=== PATIENT | female | born 1980 | race Caucasian/White ===

== ENCOUNTER 2017-12-20 03:17 | Emergency (ER) | payer BC, OTHER, SELFPAY ==
[2017-12-20 03:22] VITALS: BP 119/77; PULSE 74; RESP 16; TEMP 36.8; O2SAT 97; BMI 30.7
--- NOTE | 2017-12-20 04:08 | ED.VIS.GEN ---
History of Present Illness Chief Complaint: Abd Pain Narrative: 2 separate issues tonight; the first is right lower leg medial discomfort that started yesterday around 24 hours ago, spontaneously without injury, it is now more anterior. She states about 4 months ago she had procedures on the veins in her right lower leg that included excision of 1 of the saphenous veins. She states this discomfort started as feeling just like her postoperative pain. Now that discomfort is gone, and she has a weird anterior acosta pain that she states it feels very sensitive to even touch the skin. She has noticed no skin color changes. She has had no edema that she knows of, but states she is on her feet all the time and is not sure about the presence or absence of swelling. She denies any chest discomfort or shortness of breath, no history of DVT or PE, she had the procedures because of varicose veins that were uncomfortable. She states 3 or 4 hours prior to arrival, she started having left upper quadrant pain that is mild and achy, but has occasional severe sharp stabbing component. No radiation into the back or elsewhere. No migration. No urinary symptoms, no changes in bowel movements, the last one was normal and about an hour or 2 prior to the onset of pain. No blood or melena. She states she was diagnosed as possibly having a peptic ulcer when she was 14 years old, she was on medical treatment for it, and never had any issues like that again, and states over the last several days to week, although she has been severely stressed she has had no abdominal pain with or without eating until a few hours ago. She is nauseated but has had no vomiting tonight. She states she is extremely stressed when at her job, and she recently quit smoking. When going to her job, she has occasional diarrhea and headaches. Her in the weekend when she is not at work, she has none of those symptoms. She states that 3 days ago, she put in her 2 weeks notice and is quitting her job, and has felt better physically with regards of those symptoms ever since. - Past Medical History (1) Hypothyroidism Status: Chronic (2) Varicose veins of both lower extremities Status: Chronic Past Medical History - Allergies and Home Meds Allergies/Adverse Reactions: Allergies adhesive Allergy (Verified 12/20/17 03:21) Other jean her skin latex Allergy (Verified 12/20/17 03:20) Other blisters Surgical History: - - bilat tubal ligation Smoking Status: Former smoker Drugs: None Review of Systems All systems negative except as indicated General: Denies: Chills, Fever Cardiovascular: Denies: Chest pain, Palpitations, Heart racing Respiratory: Denies: Dyspnea, Cough, Orthopnea, Paroxysmal nocturnal dyspnea Gastrointestinal: Reports: Abdominal pain, Nausea, Diarrhea - not now. Denies: Vomiting, Melena, Hematochezia Genitourinary: Denies: Dysuria, Hematuria, Frequency Skin: Denies: Rash, Abscess, Wounds Neurological: Reports: Headache - not now. Denies: Weakness, Parasthesia, Numbness Endocrine: Denies: Polyuria, Polydipsia Physical Exam Vital Signs/Narrative: Vital Signs Temp Pulse Resp BP Pulse Ox 12/20/17 03:22 98.2 F 74 16 119/77 97 Inital Vital Signs reviewed: Yes General: Well nourished, Well developed Head: Normocephalic, Atraumatic Eyes: Perrl, EOMI ENT: Moist mucous membranes, No rhinorrhea Neck: Supple, Nontender Cardiovascular: Regular rate, Regular rhythm, No murmurs Respiratory: No distress, CTA bilaterally, Chest nontender Abdomen: Soft, Nondistended, Normal bowel sounds, Tender - Left upper quadrant only.. Negative for: Guarding, Rebound tenderness, Mass, Pulsatile mass, Ventral hernia Back: Nontender, Normal Inspection. Negative for: CVA tenderness Extremities: No edema, Tenderness - very tender superficial palp over right acosta, but stops the tibial tuberosity, and just before ankle. No skin abnormalities or erythema or lesions in this area. No tenderness in any of the muscular compartments including anterior lower leg compartment. Full range of motion of knee and ankle without any difficulty or limitations. 2+/4 dorsalis pedis pulse. No calf tenderness. No palpable cords throughout the leg and thigh. Skin: Normal color, No rash Neurological: Alert, Oriented x3, Cranial nerves II-XII grossly intact, Normal Strength, Normal Sensation Psychological: Normal affect Diagnostic/Tx/Re-eval Laboratory Tests 12/20/17 12/20/17 12/20/17 03:32 03:32 04:20 WBC 6.9 RBC 4.48 Hgb 14.0 Hct 41.5 MCV 92.6 MCH 31.3 MCHC 33.7 RDW 12.7 RDW Differential 41.8 Plt Count 293 MPV 9.5 Immature Gran % (Auto) 0.600 Neut % (Auto) 54.8 Lymph % (Auto) 32.5 [place]orte % (Auto) 7.8 Eos % (Auto) 3.6 Baso % (Auto) 0.7 Absolute Neuts (auto) 3.8 Absolute Lymphs (auto) 2.25 Total Counted Not Reportable D-Dimer Quant (PE/DVT) 0.34 Sodium 143 Potassium 3.9 Chloride 107 Carbon Dioxide 25.0 Anion Gap 11 BUN 11 Creatinine 0.64 Estim Creat Clear Calc 110.48 Est GFR (MDRD) Af Amer 132 Est GFR (MDRD) Non-Af 109 BUN/Creatinine Ratio 17.2 Glucose 87 Calcium 8.8 - Medical Decision Making Patient noticed improvement after GI cocktail. Still some mild residual discomfort, but no severe sharp stabbing pains anymore. Her labs are very reassuring with no signs of a leukocytosis, and her d-dimer is negative. Therefore, she does not need further workup to rule out acute DVT or PE, and I do not think she needs a CT of the abdomen/pelvis at this time. Her pain is intestinal some sort, possibly related to the stomach. I at least recommend a 2 week course of an H2 justice or PPI and follow-up from there. She is comfortable with that plan. Of note, she states that with time and observation her right lower extremity is improving with regards to its discomfort. ED Disposition - Plan for ED Patient: Disposition: Home or Assisted Living Chief Complaint: Abd Pain Diagnosis: Left upper quadrant abdominal pain of unknown etiology, Right leg pain Instructions: ED Abdominal Pain Unkn Cause Prescriptions: Ondansetron [Zofran Odt] 8 mg PO Q8H PRN PRN #15 tab PRN Reason: Nausea/Vomiting [facility] - 1 Week if not improving Additional Instructions: Take daily Zantac, Pepcid, Tagamet, or Prilosec OTC for 2 weeks.
[2017-12-20] MEDS: Ondansetron 4 MG/2 ML Vial IV (04:15)
[2017-12-20] MEDS: Mag Hydrox/Al Hydrox/Simeth 30 ML UDC PO (04:15)
[2017-12-20 04:18] LABS: Absolute Lymphocyte Count 2.25 X10^3/ul (0.83-4.51); Absolute Neutrophil Count 3.8 X10^3/uL (2.0-7.7); Basophil# 0.05 X10^3/uL; Basophil% 0.7 % (0-1); Eosinophil# 0.25 X10^3/uL; Eosinophils% 3.6 % (0-5); Hematocrit 41.5 % (37-47); Lymphocyte # 2.25 X10^3/ul (4.0); Lymphocyte % 32.5 % (19-41); Mean Corp Hgb Conc 33.7 g/gl (32-36); Mean Corpuscular Hgb 31.3 pg (27.0-32.0); Mean Corpuscular Volume 92.6 fL (81-99); Mean Platelet Vol. 9.5 fl (6.2-12.0); Monocyte# 0.54 X10^3/uL; Monocyte% 7.8 % (0-10); Neutrophil % 54.8 % (47-70); Platelet Count 293 K/mm3 (150-450); RBC Distribution Width CV 12.7 % (11.6-14.6); RBC Distribution Width SD 41.8 fl (35.1-43.9); Red Blood Count 4.48 M/mm3 (4.2-5.4); White Blood Count 6.9 K/mm3 (4.4-11.0)
[2017-12-20 04:20] LABS: POSITIVE COUNT NO; POSITIVE DIFFERENTIAL NO; POSITIVE MORPHOLOGY NO
[2017-12-20 04:27] LABS: Anion Gap 11 (5-15); BUN 11 mg/dL (7-18); BUN/Creat Ratio 17.2 RATIO (10-20); Calcium,Total 8.8 mg/dL (8.5-10.1); Chloride 107 mmol/L (98-107); Creatinine, Serum 0.64 mg/dL (0.55-1.02); EST Glomerular Filtration Rate 109 mL/min (>60); Est Glom Filt Rate - Afr Amer 132 mL/min (>60); Estimated Creatinine Clearance 110.48 ml/min; Glucose 87 mg/dL (74-106); Potassium 3.9 mmol/L (3.5-5.1); Sodium Level 143 mmol/L (136-145)
[2017-12-20 04:56] LABS: D-Dimer Quantitative (DVT/PE) 0.34 FEU/ug/m (0.27-0.49)
[2017-12-20 06:13] VITALS: PULSE 74; RESP 16; O2SAT 100
== END 2017-12-20 06:14 | disposition home or self-care (01) ==
PROVIDERS: Emergency Provider Emergency Medicine
DX: R10.12 Left upper quadrant pain (principal); M79.661 Pain in right lower leg; E03.9 Hypothyroidism, unspecified; I83.93 Asymptomatic varicose veins of bilateral lower extremities; Z79.899 Other long term (current) drug therapy
CPT/HCPCS: 80048; 85025; 85379; 96374; 99284; J7030; J2405

== ENCOUNTER → 2020-12-26 14:43 | Outpatient (CLI) | payer OTHER, SELFPAY ==
--- NOTE | 2020-12-26 14:53 | BI_ITS ---
MAMMOGRAPHY - BILATERAL SCREENING 3-D TOMOSYNTHESIS REASON FOR EXAM: Female, 40 years old. SCREENING PERTINENT HISTORY: No significant family history. TECHNIQUE: 2-D mammograms and 3-D Tomosynthesis of the breast (s) were performed. CAD was performed. COMPARISON: 05/28/2015 FINDINGS: The breast composition is heterogeneously dense that can obscure small breast masses. Scattered benign calcifications are seen. No dense spiculated masses or suspicious microcalcifications are identified. No architectural distortion is identified. There is no skin thickening or retraction. There has been no significant change since the prior study. BI/SCRN MAMM (CAD)W/SOFIA BILAT IMPRESSION: No mammographic signs of malignancy. Routine yearly mammograms recommended. ASSESSMENT CATEGORY: BIRADS Category 1: Negative. A letter regarding these results will be sent to the patient by the facility within 30 days. FOLLOW UP RECOMMENDATION: Yearly follow up mammogram recommended. (A) Approximately 10% of breast cancers are not detected by mammography. A normal mammogram should not delay biopsy of a clinically suspicious abnormality. Electronically Signed: Alfred Castillo MD at 10:17 EDT Tel , Service support ,
== END ==
DX: Z12.31 Encounter for screening mammogram for malignant neoplasm of breast (principal)
CPT/HCPCS: 77063; 77067

== ENCOUNTER → 2021-10-13 | Outpatient (CLI) | payer OTHER, SELFPAY ==
--- NOTE | 2021-10-13 16:00 | MRI_ITS ---
STUDY: MRI ABDOMEN WITH AND WITHOUT CONTRAST REASON FOR EXAM: Female, 41 years old. Liver abnormality TECHNIQUE: Standardized fat and water weighted pulse sequences were obtained in all 3 orthogonal planes post contrast administration. 17ML IV DOTAREM was administered for the contrast portion of the examination. COMPARISON: None. FINDINGS: The visualized lung bases are unremarkable. The visualized portions of the heart are within normal limits. There is a 3.4 x 2.9 cm T1 hypointense/T2 hyperintense mass in the left hepatic lobe demonstrating discontinuous nodular progressive enhancement compatible with hemangioma. Normal gallbladder and extrahepatic biliary system. Normal spleen. Normal pancreas. Normal bilateral adrenal glands. Normal right kidney. Normal left kidney. Normal visualized stomach. Normal small intestine. Normal colon. Normal abdominal aorta. Normal inferior vena cava. Normal retroperitoneum. Normal abdominal wall. Normal osseous structures. MRI/MRI Abd WITH and W/O Contrast IMPRESSION: 3.4 cm hepatic hemangioma in the left hepatic lobe. Electronically Signed: Saeid Baxter MD at 18:59 EDT ,
== END | disposition home or self-care (01) ==
LOC: MRI 15:34
DX: R16.0 Hepatomegaly, not elsewhere classified (principal)
CPT/HCPCS: 74183; A9575; A4216

== ENCOUNTER → 2022-02-09 | Outpatient (CLI) | payer OTHER, SELFPAY ==
--- NOTE | 2022-02-09 17:00 | BI_ITS ---
MAMMOGRAPHY - BILATERAL SCREENING REASON FOR EXAM: Female, 42 years old. Routine annual screening examination. PERTINENT HISTORY: Sister with breast cancer. TECHNIQUE: Digital bilateral breast nehal (3D mammographic acquisition) in the CC and MLO projections. 2-D mediolateral oblique (MLO) and craniocaudad (CC) views of both breasts were obtained. CAD: Full Field Digital Mammography with Computer Added Detection was performed. COMPARISON: Comparison is made with prior study dated 12/26/2020 and 05/28/2015. FINDINGS: Breast Composition: The breasts are heterogeneously dense, which may obscure small masses. There are no dominant masses or suspicious calcifications. Stable small benign-appearing and lateral. No other significant abnormalities are identified. There has been no significant change since the prior study. BI/SCREENING MAMM (CAD), BILAT IMPRESSION: Stable bilateral screening mammogram. Yearly follow-up mammogram recommended. (A) ASSESSMENT CATEGORY: BIRADS Category 2: Benign. A letter regarding these results will be sent to the patient by the facility within 30 days. Approximately 10% of breast cancers are not detected by mammography. A normal mammogram should not delay biopsy of a clinically suspicious abnormality. [id number] Electronically Signed: Moris Byrd MD at 8:51 EDT ,
== END | disposition home or self-care (01) ==
LOC: OPBI 02-10 07:12
PROVIDERS: Visit Provider Nurse Practitioner
DX: Z12.31 Encounter for screening mammogram for malignant neoplasm of breast (principal); Z80.3 Family history of malignant neoplasm of breast
CPT/HCPCS: 77067

== ENCOUNTER → 2024-04-10 | Outpatient (CLI) | payer OTHER, SELFPAY ==
--- NOTE | 2024-04-10 13:21 | BI_ITS ---
MAMMOGRAPHY - BILATERAL SCREENING REASON FOR EXAM: Female, 44 years old. Routine annual screening examination. PERTINENT HISTORY: Sister with breast cancer. TECHNIQUE: Digital bilateral breast sofia (3D mammographic acquisition) in the CC and MLO projections. 2-D mediolateral oblique (MLO) and craniocaudad (CC) views of both breasts were obtained. CAD: Full Field Digital Mammography with Computer Added Detection was performed. COMPARISON: Comparison is made with prior outside examination dated April 08, 2023 and February 09, 2022. FINDINGS: Breast Composition: The breasts are heterogeneously dense, which may obscure small masses. There are no dominant masses or suspicious calcifications. Stable fat-containing bilateral axillary lymph nodes. No other significant abnormalities are identified. There has been no significant change since the prior study. BI/SCRN MAMM (CAD)W/SOFIA BILAT IMPRESSION: Stable bilateral screening mammogram. Yearly follow-up mammogram recommended. (A) ASSESSMENT CATEGORY: BIRADS Category 2: Benign. A letter regarding these results will be sent to the patient by the facility within 30 days. Approximately 10% of breast cancers are not detected by mammography. A normal mammogram should not delay biopsy of a clinically suspicious abnormality. [id number] Electronically Signed: Moris Byrd MD at 14:11 EST ,
== END | disposition home or self-care (01) ==
PROVIDERS: Referring Provider Nurse Practitioner Adult Health; Visit Provider Nurse Practitioner Adult Health
DX: Z12.31 Encounter for screening mammogram for malignant neoplasm of breast (principal)
CPT/HCPCS: 77063; 77067

== ENCOUNTER → 2025-04-23 | Outpatient (CLI) | payer OTHER, SELFPAY ==
--- NOTE | 2025-04-23 08:31 | BI_ITS ---
EXAM: SCRN MAMM (CAD)W/SOFIA BILAT DATE: 04/23/2025 CLINICAL HISTORY: F, Age 45 y/o , SCREENING TECHNIQUE: Procedure Code: [id number] Modality: MG Procedure: SCRN MAMM (CAD)W/SOFIA BILAT COMPARISON: Prior exam(s) were compared FINDINGS: TISSUE DENSITY: The breasts are heterogeneously dense, which may obscure small masses. Bilateral Breast Mammographic Findings: No significant masses, calcifications or other abnormalities are identified. BI/SCRN MAMM (CAD)W/SOFIA BILAT IMPRESSION: No mammographic evidence of malignancy. OVERALL FINAL ASSESSMENT BI-RADS 1: NEGATIVE. RECOMMENDATION: Routine annual follow-up in 1 Year Additional Recommendation none A letter with findings and recommendations will be mailed to the patient. Reading Location: [id number]
--- OUTSIDE RECORDS SUMMARY | 2025-04-23 08:51 | XMS RPT_ITS | CCD ---
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 Name Role Phone PHYSICIAN, DEFAULT Unavailable Unavailable PHYSICIAN, DEFAULT Unavailable Unavailable NAZZAL, MUNIER Unavailable Unavailable NAZZAL, MUNIER Unavailable Unavailable NAZZAL, MUNIER Unavailable Unavailable NAZZAL, MUNIER Unavailable Unavailable DAVENPORT, CHRISTINA Unavailable Unavailable DAVENPORT, CHRISTINA Unavailable Unavailable ME Unavailable Unavailable NAZZAL, MUNIER Unavailable Unavailable HDZVERO M Unavailable Unavailable ME Unavailable Unavailable NAZZAL, MUNIER Unavailable Unavailable NAZZAL, MUNIER Unavailable Unavailable NAZZAL, MUNIER Unavailable Unavailable UNKNOWN, PHYSICIAN Unavailable Unavailable UNKNOWN, PHYSICIAN Unavailable Unavailable ME Unavailable Unavailable ME Unavailable Unavailable PITRODA, AMOS Unavailable Unavailable Unavailable Primary Care Provider Unavailabl e Unavailable Primary Care Provider Unavailabl e DAVEY NETWORKER, OTONIEL Attending Unavailab lisa Alston GLASS LOADING EQUIPMENT TENDER, Alexandra Referring Unavailable Alecia GLASS LOADING EQUIPMENT TENDER, Alexandra [facility]ending [facility]available Assessment, Health Risk Referring Unavaila ble Assessment, Health Risk Attending [facility]availa ble [facility] Unavailable Assessment, Health Risk Attending Unavaila ble [facility] Unavailable Darryl Schafer Attending [facility] Ref[facility] Unavailable Allergies Allergy Classification Reported Allergen(s) Allergy Type Date of Onset Reaction(s) Facility (1 source) Adhesive Tape; Translations: [ADHESIVE TAPE] Propensity to adverse reactions (disorder) 8 AOF [facility] Repository (8 sources) Latex; Translations: [LATEX] Propensity to adverse reactions (disorder) 5 Rash [facility] Repository (1 source) No Known Allergies; Translations: [No Known Allergies] Propensity to adverse reactions (disorder) [facility] Repository (4 sources) Seasonal allergy; Translations: [SEASONAL ALLERGIES] Allergy to substance 3 Other: See Comments [facility] (4 sources) Adhesive Tape-Silicones; Translations: [ADHESIVE TAPE-SILICONES] Drug Allergy 1 Intolerance [facility] (3 sources) Adhesive agent; Translations: [adhesive] Allergy to substance 8 Other [facility] Repository Medications Current Medications Medication Drug Class(es) Dates Sig (Normalized) Sig (Original) amoxicillin 875 mg / clavulanate 125 mg oral tablet (1 source) Penicillin-class Antibacterial Start: 07-09-2022 End: 07-16-2022 take 1 tablet by mouth twice daily amoxicillin-clavula anabell acid (AUGMENTIN) 875-125 mg per tablet Indications: Other acute nonsuppurative otitis media of right ear, recurrence not specified Take 1 tablet by mouth twice daily for 7 days. 14 tablet 0 07/09/2022 07/16/2022 Active Comment on above: Take 1 tablet by marivel th twice daily for 7 days. cephalexin 500 mg oral capsule (1 source) Cephalosporin Antibacterial Start: 03-03-2021 End: 03-08-2021 take 1 capsule by mouth four times daily cephALEXin (KEFLEX) 500 mg capsule Take 1 capsule by mouth four times daily for 5 days. 20 capsule 0 03/03/2021 03/08/2021 Active Comment on above: Take 1 capsule by mo [facility] four times daily for 5 days. levothyroxine sodium 0.075 mg oral tablet (5 sources) l-Thyroxine Start: 12-20-2017 take 1 tablet by mouth once daily Levothyroxine (Synthroid) 75 MCG tablet Active 75 MCG PO DAILY December 20, 2017 12:00am take 1 tablet by marivel th once daily before breakfast levothyroxine (SYNTHROID) 25 mcg tablet Take 25 mcg by mouth daily before breakfast. 0 Active Comment on above: Take 25 mcg by mouth daily before breakfast. methylPREDNISolone (1 source) Corticosteroid Start: 2022 End: 2022 methylPREDNISolone (MEDROL, MARV,) 4 mg Dose-Pack Indications: Dermatitis Follow dosing instructions, take with food. 21 tablet 0 10/26/2022 11/01/2022 Active Comment on above: Follow dosing instru ctions, take with food. ondansetron 8 mg disintegrating oral tablet (2 sources) Serotonin-3 Receptor Antagonist Start: 2017 take 8 mg by mouth every eight hours as needed Ondansetron Active 8 MG PO EVERY 8 HOURS NEEDED December 20, 2017 12:00am Completed/Discontinued Medications Medication Drug Class(es) Dates Sig (Normalized) Sig (Original) MAGNESIUM OXIDE/MAG AA CHELATE (MAGNESIUM, OXIDE/AA CHELATE, ORAL) (3 sources) End: 10-26-2022 MAGNESIUM OXIDE/MAG AA CHELATE (MAGNESIUM, OXIDE/AA CHELATE, ORAL) Take by mouth. 0 10/26/2022 Discontinued MAGNESIUM OXIDE/ MAG AA CHELATE (MAGNESIUM, OXIDE/AA CHELATE, ORAL) Take by mouth. 0 Active Comment on above: Take by mouth. 1 ml medroxyPROGESTERone acetate 150 mg/ml injection (3 sources) Progestin Start: 2017 medroxyPROGESTERone (DEPO-PROVERA) 150 mg/mL injection medroxyprogesterone 150 mg/mL intramuscular suspension 0 10/19/2017 Active Comment on above: medroxyprogesterone 150 mg/mL intramuscular suspension predniSONE 10 mg oral tablet (3 sources) Start: 2014 End: 2022 predniSONE (DELTASONE) 10 mg tablet Indications: Rash Take 4 tabs daily for 3 days, then 2 tabs daily for 3 days, then 1 tab daily for 3 days with food. 21 tablet 0 07/31/2014 10/26/2022 Discontinued Comment on above: Take 4 tabs daily fo r 3 days, then 2 tabs daily for 3 days, then 1 tab daily for 3 days with food. Problems Problem Classification Problem Date Documented Date Episodic/Chronic Abdominal pain (2 sources) Abdominal pain - cause unknown; Translations: [Left upper quadrant pain] Episodic Allergic reactions (2 sources) Latex allergy status; Translations: [Inflammatory dermatosis] Onset: 06-20-2017 Episodic Open wounds of extremities (1 source) Laceration of right thumb; Translations: [Laceration without foreign body of right thumb without damage to nail, initial encounter] Episodic Other connective tissue disease (2 sources) Pain in right lower limb; Translations: [Pain in right leg] Episodic Other screening for suspected conditions (not mental disorders or infectious disease) (1 source) Encounter for screening mammogram for malignant neoplasm of breast; Translations: [Encounter for screening mammogram for malignant neoplasm of breast] Onset: 05-11-2024 Episodic Other upper respiratory disease (1 source) Other seasonal allergic rhinitis; Translations: [OTHER SEASONAL ALLERGIC RHINITIS] Onset: 06-20-2017 Chronic Other upper respiratory infections (2 sources) Viral upper respiratory tract infection; Translations: [Acute upper respiratory infection, unspecified] Episodic Otitis media and related conditions (1 source) Acute secretory otitis media; Translations: [Other acute nonsuppurative otitis media, right ear] Episodic Substance-related disorders (1 source) Nicotine dependence, cigarettes, uncomplicated; Translations: [NICOTINE DEPENDENCE, CIGARETTES, UNCOMPLICATED] Onset: 06-20-2017 Chronic Thyroid disorders (3 sources) Hypothyroidism, unspecified; Translations: [Hypothyroidism] Onset: 06-20-2017 Chronic Unclassified (2 sources) Unknown / UNK(Unknown) Onset: 06-20-2017 Unclassified (1 source) Encounter for screening for COVID-19; Translations: [Encounter for screening for COVID-19] Onset: 09-23-2023 Varicose veins of lower extremity (10 sources) Varicose veins of right lower extremity with pain; Translations: [Varicose veins of bilateral lower extremities with other complications] Onset: 03-16-2017 Episodic Results Test Name Value Interpretation Reference Range Facil ity SCRN MAMM (CAD)W/SOFIA BILATo n 04-10-2024 SCRN MAMM (CAD)W/SOFIA BILAT [facility] Imaging Services [address] [place] [address] SCRN MAMM (CAD)W/SOFIA BILAT MR#: [id number] Acct: [id number] Name: LUIS MANUEL DOAN LEESA Rep #: [id number] : 1980 F 44 From: Moris coreas MD PCP: [facility] Status: [facility] Study: SCRN MAMM (CAD)W/SOFIA BILAT Date of Exam: 04/01 Exam# [id number] Ordering Dr: Alexandra Alston GLASS LOADING EQUIPMENT TENDER [id number] MAMMOGRAPHY - BILATERAL SCREENING REASON FOR EXAM: Female, 44 years old. Routine annual screening examination. PERTINENT HISTORY: Sister with breast cancer. TECHNIQUE: Digital bilateral breast sofia (3D mammographic acquisition) in the CC and MLO projections. 2-D mediolateral oblique (MLO) and craniocaudad (CC) views of both breasts were obtained. CAD: Full Field Digital Mammography with Computer Added Detection was performed. COMPARISON: Comparison is made with prior outside examination dated April 08, 2023 and February 09, 2022. FINDINGS: Breast Composition: The breasts are heterogeneously dense, which may obscure small masses. There are no dominant masses or suspicious calcifications. Stable fat-containing bilateral axillary lymph nodes. No other significant abnormalities are identified. There has been no significant change since the prior study. BI/SCRN MAMM (CAD)W/SOFIA BILAT IMPRESSION: Stable bilateral screening mammogram. Yearly follow-up mammogram recommended. (A) ASSESSMENT CATEGORY: BIRADS Category 2: Benign. A letter regarding these results will be sent to the patient by the facility within 30 days. Approximately 10% of breast cancers are not detected by mammography. A normal mammogram should not delay biopsy of a clinically suspicious abnormality. [id number] Electronically Signed: Moris Byrd MD at 14:11 EST Reading Location ID and State: [facility] / [place] , Service support , CC: Alexandra Alston NP; [facility] Lay Out Maker: Signed Normal [facility] Hepatitis B Surface Antibody on 11-03-2023 HEP B Surf Ab Reactive Normal [facility] Comment on above: Result Comment: Non Reactive: Inconsiste nt with immunity less than <10 mIU/mL Reactive: Consistent with immunity greater than or equal to 10 mIU/mL Performed By: #### L 3890.6200 #### [facility] Laboratory [facility] [place], [address] Office Visit Reporton 2023 Office Visit Report [facility] [address] [place] [address] OFFICE VISIT Date of Service: 09/23/23 MR#: [id number] Acct: [id number] Patient: LUIS MANUEL DOAN Rep #: [id number] : 1980 Provider: GRAYSON Maradiaga Age/Sex: 43/F Location[place] [facility] Status: Signed Employer Purchased Covid Test Note: Patient here today for Covid Testing, requested by their Employer. Assessment and Plan Assessment and Plan Orders: Orders POC Cepheid LEODAN Cov-2 PCR EMP Today Z11.52 - Encounter for screening for COVID-19 10/06/23 0743 Date Darryl GALICIA Cosigner Signature: Date (if applicable) CC: Normal [facility] Mumps Antibody,IgGon 024 MUMPS Ab, IgG 136.0 AU/mL Normal Immune >10.9 [facility] Comment on above: Result Comment: Negative <9.0 Equivocal 9.0 - 10.9 Positive >10.9 A positive result generally indicates past exposure to Mumps virus or previous vaccination. Performed By: #### L 3400.1750, L3100.3400, L509.4015, L3100.0539 #### [facility] [address] [place], [address] [facility] EMP Rubeola Titeron 05-0 RUBEOLA Ab, IgG 51.5 AU/mL Normal Immune >16.4 [facility] Comment on above: Result Comment: Negative <13.5 Equivocal 13.5 - 16.4 Positive >16.4 Presence of antibodies to Rubeola is presumptive evidence of immunity except when acute infection is suspected. Performed at: - [facility] [id number] [place] Nurse: Khurram Krueger PhD, Phone: [phone] Performed By: #### L 3400.1750, L3100.3400, L509.4015, L3100.0539 #### [facility] [address] [place], [place], [address] Hepatitis B Surf AB - EMPon 08-30-2023 HEP B Surf Ab Non-Reactive Normal [facility] Comment on above: Result Comment: Non Reactive: Inconsiste nt with immunity less than <10 mIU/mL Reactive: Consistent with immunity greater than or equal to 10 mIU/mL Performed By: #### L 3400.1750, L3100.3400, L509.4015, L3100.0539 #### [facility] [address] [place], [place], [id number] Rubella IgG [facility] EMPLOYEEon 0 08-30-2023 Rubella IgG Reactive Normal Nonreactive [facility] Comment on above: Result Comment: Antibody Results Interpr etation of Immune Status Non Reactive Presumed Non-Immune Equivocal Equivocal Reactive Presumed Immune Performed By: #### L 3400.1750, L3100.3400, L509.4015, L3100.0539 #### [facility] [address] [place], [place], [id number] MA MAMMOGRAM SCREENING BILAT ERAL W/TOMOon 04-11-2023 MA MAMMOGRAM SCREENING BILATERAL W/SOFIA ORIGINAL FROM: [address] [place], [place] [address] PROCEDURE [place]: [place] [address] Home: PID#: [id number] Exam#: [id number] : 1980 Age: 43 TO: [place] [address] Patient is self-referred. EXAMINATION: SCREENING DIGITAL BILATERAL MAMMOGRAM WITH TOMOSYNTHESIS, 04/08/2023 2:58 pm TECHNIQUE: Screening mammography of the bilateral breasts was performed with tomosynthesis. 2D standard and 3D tomosynthesis combination imaging performed through both breasts in the MLO and CC projection. Computer aided detection was utilized in the interpretation of this exam. COMPARISON: 02/09/2022, 12/26/2020 HISTORY: Breast cancer screening. FINDINGS: BREAST DENSITY: Scattered fibroglandular tissue There is a benign appearing unchanged density in the left breast. There are no significant masses or calcifications. IMPRESSION: No mammographic evidence of malignancy. Continued screening with annual mammograms is recommended. [facility] risk calculations, generated with the history provided, report this patient's 10 year risk and lifetime risk for developing breast cancer at 1.7% and 9.6%, respectively. Based on this assessment tool, if the patient's calculated lifetime risk is below 20%, then the patient is considered at average risk for developing breast cancer. If the patient's calculated lifetime risk is at or above 20%, then the patient is considered high risk for developing breast cancer and may be a candidate for supplemental breast MRI screening in addition to annual mammographic screening per the [employer]. BIRADS: MAMMOGRAM BI-RADS: 2: Benign finding RECALL: 1 year screening RECALL TYPE: mammo LETTER SENT: Normal BI-RADS 1 and 2 Interpreted by: Quan Ochoa MD Preliminary Report By: Quan Ochoa MD Electronically signed By Quan Ochoa MD Dictated Date: 04/11/2023 3:11:30 PM Prelim Date: 04/11/2023 3:14:45 PM Sign Date: 04/11/2023 3:14:45 PM Ordering Provider: OTONIEL MARISCAL Production Support Engineer: OLY SOLOMON (Nish)(M) letter sent: Normal BI-RADS 1 and 2 Mammogram BI-RADS: 2 Benign Normal [facility] ([place]) CNOVon 10-26-2022 CNOV Office Visit ([facility] ) -------- LUIS MANUEL DOAN ([id number]) 1980 F Date Time Provider Department 10/26/22 5:30 PM ZENY URBINA During your visit today, we recorded the following information about you: Temperature Pulse Respiration Blood pressure 98.3 degrees 80/minute 18/minute 122/78 Weight 99.8 kg Zeny Urbina APRN.CNP 10/26/2022 5:52 PM Signed This note was created using Sensulinriter. Subjective Luis Manuel Doan is a 42 year old female. Rash patient states that approximately 1 month ago she had a ringworm spot underneath her right arm. She used some omry-kyg-kdixdzk antifungal cream for this with no results. She states it actually seems like it made it worse. She switch to a different antifungal cream with still no relief of the rash. And then yesterday on the right inner wrist small tiny blisters appeared. She denies any fevers. Review of Systems Objective BP 122/78 Pulse 80 Temp 36.8 ?C (98.3 ?F) (Tympanic) Resp 18 Wt 99.8 kg (220 lb) SpO2 100% Physical Exam Skin: ASSESSMENT/PLAN: 1. Dermatitis - ICD9: 692.9, ICD10: L30.9 - Oral Steriod tx -Medrol dose pack - Anti itch therapy of OTC 1% Hydrocortisone cream and Oral Benydryl recommended prn - discussed skin care of rash - follow up if symptoms persist or worsen. - METHYLPREDNISOLONE 4 MG TABLETS IN A DOSE PACK Zeny Urbina APRN.CNP Medical Decision Making: Problems: Low: Acute, uncomplicated illness or injury Risk: Low: Low risk from testing/treatment Moderate: Drug management Medical Decision Making Level: 3 - Low Referring Provider: SELF [200] Allergies As of Date: 10/26/2022 Noted Allergy Reaction LATEX 07/31/2014 2 - Rash Comments: AND swelling SEASONAL ALLERGIES 03/20/2013 14 - Other: See Comments Comments: Nasal congestion TAPE (ADHESIVE TAPE-SILICONES) 03/03/2021 5 - Intolerance Date Reviewed: 10/26/2022 Reviewed by: Virginia Rojas LPN - Fully Assessed Reason for Visit: Rash [1087] Cmt: Rash on right arm x 1 month-new spots noticed new spots yesterday Primary Visit Diagnosis:Dermatitis [L30.9] Order(s):methylPREDNISol one (MEDROL, MARV,) 4 mg Dose-PackFollow dosing instructions, take with food.Disp: 21 tabletRfl: 0 Prescriptions as of 10/26/2022 - methylPREDNISolone (MEDROL, MARV,) 4 mg Dose-Pack Follow dosing instructions, take with food. - medroxyPROGESTERone (DEPO-PROVERA) 150 mg/mL injection medroxyprogesterone 150 mg/mL intramuscular suspension - levothyroxine (SYNTHROID) 25 mcg tablet Take 25 mcg by mouth daily before breakfast. Problem List As Of Date: 10/26/2022 (None) Prescriptions ordered this encounter Disp Refills Start End METHYLPREDNISOLONE 4 MG TABLETS IN A* 21 t* 0 10/26/2022 11/01/2022 Sig: Follow dosing instructions, take with food. Medications Discontinued During This Encounter Prescriptions - MAGNESIUM OXIDE/MAG AA CHELATE (MAGNESIUM, OXIDE/AA CHELATE, ORAL) (Discontinued) Reported on 03/03/2021 - predniSONE (DELTASONE) 10 mg tablet (Discontinued) Reported on 03/03/2021 Encounter Status:Closed by ZENY URBINA on 10/26/22 [facility] 07-09-2022 ABEBE Office Visit ([facility] ) -------- LUIS MANUEL DOAN ([id number]) 1980 F Date Time Provider Department 07/09/22 6:45 PM MICKIE LEUNG [facility] During your visit today, we recorded the following information about you: Temperature Pulse Respiration Blood pressure 98.3 degrees 86/minute 16/minute 108/68 Weight 97.1 kg Mickie Leung APRN.NETWORKER 07/09/2022 7:10 PM Signed Subjective Cough Associated symptoms include ear pain. Pertinent negatives include no chills, no headaches, no sore throat and no myalgias. Luis Manuel Doan is a 42 year old female who presents with laryngitis for the past 3 days. Also has had a cough and coughing up phlegm and having bilateral ear pain. She has been taking Mucinex. She was treated about a month ago for an ear infection with antibiotic and drops. Review of Systems Constitutional: Negative for chills and fever. HENT: Positive for congestion and ear pain. Negative for sore throat. Respiratory: Positive for cough and sputum production. Cardiovascular: Negative. Gastrointestinal: Negative for diarrhea, nausea and vomiting. Musculoskeletal: Negative for myalgias. Neurological: Negative for headaches. BP 108/68 Pulse 86 Temp 36.8 ?C (98.3 ?F) (Tympanic) Resp 16 Wt 97.1 kg (214 lb) SpO2 96% History reviewed. No pertinent past medical history. No past surgical history on file. ALLERGIES Latex, Seasonal Allergies, and Tape [Adhesive Tape-Silicones] MEDICATIONS medroxyPROGESTERone (DEPO-PROVERA) 150 mg/mL injection medroxyprogesterone 150 mg/mL intramuscular suspension levothyroxine (SYNTHROID) 25 mcg tablet Take 25 mcg by mouth daily before breakfast. amoxicillin-clavulanic acid (AUGMENTIN) 875-125 mg per tablet Take 1 tablet by mouth twice daily for 7 days. MAGNESIUM OXIDE/MAG AA CHELATE (MAGNESIUM, OXIDE/AA CHELATE, ORAL) Take by mouth. (Patient not taking: Reported on 03/03/2021 ) predniSONE (DELTASONE) 10 mg tablet Take 4 tabs daily for 3 days, then 2 tabs daily for 3 days, then 1 tab daily for 3 days with food. (Patient not taking: Reported on 03/03/2021 ) No family history on file. Social History Tobacco Use Smoking status: Every Day Smokeless tobacco: Never Objective Physical Exam Vitals and nursing note reviewed. Constitutional: Appearance: Normal appearance. HENT: Right Ear: Ear canal and external ear normal. Tympanic membrane is injected and erythematous. Left Ear: Tympanic membrane, ear canal and external ear normal. Mouth/Throat: Mouth: Mucous membranes are moist. Pharynx: Oropharynx is clear. Uvula midline. No oropharyngeal exudate or posterior oropharyngeal erythema. Cardiovascular: Rate and Rhythm: Normal rate and regular rhythm. Heart sounds: Normal heart sounds. Pulmonary: Effort: Pulmonary effort is normal. No respiratory distress. Breath sounds: Normal breath sounds. No wheezing or rales. Musculoskeletal: Cervical back: Neck supple. Lymphadenopathy: Cervical: No cervical adenopathy. Skin: General: Skin is warm and dry. Findings: No erythema or rash. Neurological: Mental Status: She is alert. ASSESSMENT/PLAN: 1. Other acute nonsuppurative otitis media of right ear, recurrence not specified - ICD9: 381.00, ICD10: H65.191 (primary diagnosis) - Will begin treatment with as per antibiotic as written, see orders - Supportive care with plenty of fluids, rest, and analgesia prn. - AMOXICILLIN 875 MG-POTASSIUM CLAVULANATE 125 MG TABLET 2. Viral URI - ICD9: 465.9, ICD10: J06.9 - Discussed viral etiology and rationale for treatment. - Symptomatic treatment with prn analgesia - Supportive care with fluids and rest 3. Laryngitis - ICD9: 464.00, ICD10: J04.0 - likely viral, continue Mucinex, also use hot tea with honey - Follow-up with your PCP in 3-5 days if symptoms have not improved or sooner if symptoms worsen - Discussed red flags and need for immediate medical evaluation if any occur. - Discussed supportive care treatment with fluids, rest and analgesia. - Discussed expected course of illness Mickie Leung APRN.LIYA Leung APRN.CNP 07/09/2022 7:05 PM Signed ASSESSMENT/PLAN: 1. Other acute nonsuppurative otitis media of right ear, recurrence not specified - ICD9: 381.00, ICD10: H65.191 (primary diagnosis) - Will begin treatment with as per antibiotic as written, see orders - Supportive care with plenty of fluids, rest, and analgesia prn. - AMOXICILLIN 875 MG-POTASSIUM CLAVULANATE 125 MG TABLET 2. Viral URI - ICD9: 465.9, ICD10: J06.9 - Discussed viral etiology and rationale for treatment. - Symptomatic treatment with prn analgesia - Supportive care with fluids and rest 3. Laryngitis - ICD9: 464.00, ICD10: J04.0 - likely viral, continue Mucinex, also use hot tea with honey - Follow-up with your PCP in 3-5 days if symptoms have not improved or sooner if symptoms worsen (more content not included)... Normal [facility] Operative Reporton 8 Operative Report MR#: [id number] [facility] Pt. Name: Luis Manuel Doan Room #: 0C Discharge Date: Birthdate: 1980 OPERATIVE REPORTDATE OF SURGERY: 07/11/2017SURGEON: Flora Bland M.D.PREOPERATIVE DIAGNOSIS: Left lower extremity varicose veins.POSTOPERATIVE DIAGNOSIS: Left lower extremity varicose veins.PROCEDURE DONE: Ablation of the left greater saphenous vein.ACID PUMPER: Dr. Saldana.ANESTHESIA: Local anesthesia and sedation.INDICATION: Ms. Doan is a 37-year-old female patient, who had bilaterallower extremity varicose veins. The vein on the right side had surgery inthe past, but presenting for ablation of the left side with possibleinjections sclerotherapy.PROCEDURE IN DETAIL: The patient was put in the supine position. The leftleg was prepped and draped in the usual fashion. The veins were markedbefore the surgery. An ultrasound was used to evaluate the greatersaphenous vein. Then, access was made to the vein distal to the calf.Micro sheath inserted. Wire was placed under ultrasound. Then, lasersheath as well as the laser were advanced with the tip of the laser about 2cm from the saphenofemoral junction. After that, tumescent anesthesiainjected around the vein. Then, ablation was done for the vein using 13watts of energy for a total of 3235.3 joules and the length of time of226.92 seconds.Ultrasound was done again, which showed complete occlusion of the greatersaphenous vein, but patent common femoral vein.After that, the small veins that were present on the leg were inspected.They were all disappeared because of tumescent anesthesia, so decided if aninjection will be done at the later stage.Dressing applied with no complications.Electronic ally Signed by:Flora Bland M.D. 08/14/2017 03:43 P Flora Bland M.D.Date Dict: 07/12/2017/10:36 A/Flora Bland M.D.Date Trans: 07/12/2017 08:46 P/[id number]_[id number] Normal [facility] POC GLUCOSE LABon 07-11-2017 Glucose mass conc 92 mg/dL Normal 70-100 [facility] Comment on above: Performed By: #### [id number] ####[facility] Operative Reporton 8 Operative Report MR#: [id number] [facility] Pt. Name: Luis Manuel Doan Room #: 0C Discharge Date: Birthdate: 1980 OPERATIVE REPORTDATE OF SURGERY: 06/20/2017SURGEON: Flora Bland M.D.PREOPERATIVE DIAGNOSIS: Right lower extremity varicose veins with pain andswelling.POSTOPERATIV E DIAGNOSIS: Right lower extremity varicose veins with painand swelling.PROCEDURE DONE: Right greater saphenous vein ablation. Phlebectomy, 6incisions.ACID PUMPER SURGEON: Dr. Huynh.ANESTHESIA: General anesthesia.COMPLICATION: No complication.INDICATION: The patient is a 37-year-old female patient who has largevaricosities in the right leg. She has swelling in the leg.In addition, ultrasound showed reflux in the greater saphenous veins.PROCEDURE IN DETAIL: The patient put in a supine position. The right legwas prepped and draped in the usual fashion. Ultrasound was used toevaluate the right leg. Access was made to the greater saphenous veindistally below the knee. Micro sheath inserted. Then, a wire was placedunder ultrasound into the saphenofemoral junction, followed by placing thesheath for laser and then the laser itself where the tip of the laser wasabout 2.1 cm. After that, laser was applied to the greater saphenous veinafter tumescent anesthesia. The tumescent anesthesia was injected aroundthe vein using ultrasound. Then, 13 feldman of laser was used to the greatersaphenous vein for a total of 2772.932 joules. The length of time used is212.63 seconds. After that, an ultrasound was done, which confirmed thepatency of the common femoral vein and the occlusion of the greatersaphenous vein. Then, after that, a total of 10 incisions were made in theright leg removing a large volume of veins from the calf area, and afterthat, Steri-Strips were applied to the leg. Dressing applied with nocomplication. Blood loss was less than 100 mL.Electronically Signed by:Flora Bland M.D. 06/22/2017 03:05 P Flora Bland M.D.Date Dict: 06/20/2017/10:02 Karley/Flora Bland M.D.Date Trans: 06/20/2017 02:32 P/[id number] Normal [facility] POC GLUCOSE LABon 06-20-2017 Glucose mass conc 95 mg/dL Normal 70-100 [facility] Comment on above: Performed By: #### [id number] ####[place] [address] [address] Vital Signs Date Time Vital Sign Value Performing Clinician Ellie gardner 10-26-2022 17:27-0400 Body temperature 98.29 [degF] Zeny Carlitos HOT MOLDER.NETWORKER Work Phone: [facility] 10-26-2022 17:27-0400 Body weight 99.79 kg Zeny Big Timber HOT MOLDER.NETWORKER Work Phone: [facility] 10-26-2022 17:27-0400 Diastolic blood pressure 78 mm[Hg] Zeny [place] HOT MOLDER.NETWORKER Work Phone: [facility] 10-26-2022 17:27-0400 Heart rate 80 /min Zeny [place] HOT MOLDER.NETWORKER Work Phone: [facility] 10-26-2022 17:27-0400 Respiratory rate 18 /min Zeny Carlitos HOT MOLDER.NETWORKER Work Phone: [facility] 10-26-2022 17:27-0400 SaO2% (BldA) [Mass fraction] 100 % Zeny [place] HOT MOLDER.NETWORKER Work Phone: [facility] 10-26-2022 17:27-0400 Systolic blood pressure 122 mm[Hg] Zeny Carlitos HOT MOLDER.NETWORKER Work Phone: [facility] 07-09-2022 18:45-0500 Body temperature 98.29 [degF] Mickie Praisler-Wood HOT MOLDER.NETWORKER Work Phone: [facility] 07-09-2022 18:45-0500 Body weight 97.07 kg Mickie Praisler-Wood HOT MOLDER.NETWORKER Work Phone: [facility] 07-09-2022 18:45-0500 Diastolic blood pressure 68 mm[Hg] Mickie Praisler-Wood HOT MOLDER.NETWORKER Work Phone: [facility] 07-09-2022 18:45-0500 Heart rate 86 /min Mickie Praisler-Wood HOT MOLDER.NETWORKER Work Phone: [facility] 07-09-2022 18:45-0500 Respiratory rate 16 /min Mickie Praisler-Wood HOT MOLDER.NETWORKER Work Phone: [facility] 07-09-2022 18:45-0500 SaO2% (BldA) [Mass fraction] 96 % Mickie Praisler-Wood HOT MOLDER.NETWORKER Work Phone: [facility] 07-09-2022 18:45-0500 Systolic blood pressure 108 mm[Hg] Mickie Praisler-Wood HOT MOLDER.NETWORKER Work Phone: [facility] 03-03-2021 18:20-0400 Body temperature 97.9 [degF] Virgen Dc HOT MOLDER.NETWORKER Work Phone: [facility] 03-03-2021 18:20-0400 Body weight 88.18 kg Virgen Dc HOT MOLDER.NETWORKER Work Phone: [facility] 03-03-2021 18:20-0400 Diastolic blood pressure 86 mm[Hg] Virgen Dc HOT MOLDER.NETWORKER Work Phone: [facility] 03-03-2021 18:20-0400 Heart rate 109 /min Virgen Dc HOT MOLDER.NETWORKER Work Phone: [facility] 03-03-2021 18:20-0400 Respiratory rate 18 /min Virgen Dc HOT MOLDER.NETWORKER Work Phone: [facility] 03-03-2021 18:20-0400 SaO2% (BldA) [Mass fraction] 98 % Virgen Dc HOT MOLDER.NETWORKER Work Phone: [facility] 03-03-2021 18:20-0400 Systolic blood pressure 122 mm[Hg] Virgen Dc HOT MOLDER.NETWORKER Work Phone: [facility] Encounters Encounter Date Encounter Type Care Provider Facility Start: 04-10-2024 End: 04-10-2024 ambulatory Alexandra Alston NP Facility:[facility] Start: 11-02-2023 ambulatory Health Risk Assessment Facility:[facility] Start: 09-23-2023 End: 09-23-2023 ambulatory Darryl GALICIA [place] Start: 08-30-2023 ambulatory Health Risk Assessment Facility:[facility] Start: 04-08-2023 End: 04-09-2023 ambulatory SARAADELAKaley DOVERDAVEY CNP Facility:[facility] Start: 04-08-2023 End: 04-08-2023 Patient encounter procedure SARAMANI DAVEY NETWORKER [facility] Start: 10-26-2022 End: 10-26-2022 ambulatory Facility:[facility] Start: 10-26-2022 End: 10-26-2022 Patient encounter procedure Zeny Urbina HOT MOLDER.NETWORKER Work Phone: [facility] Comment on above: Dermatitis (Primary Dx) Start: 07-09-2022 End: 07-09-2022 ambulatory Facility:[facility] Start: 07-09-2022 End: 03-10-2023 Patient encounter procedure Mickie ObrienWood HOT MOLDER.NETWORKER Work Phone: [facility] Comment on above: Other acute nonsuppu rative otitis media of right ear, recurrence not specified (Primary Dx); Viral URI; Laryngitis Start: 02-09-2022 End: 02-09-2022 ambulatory [facility] Work Phone: Start: 02-09-2022 End: 02-09-2022 Patient encounter procedure [facility]-Outpatient Breast Imaging Start: 10-13-2021 End: 10-13-2021 Patient encounter procedure [facility]MRI [facility] Start: 03-03-2021 End: 03-03-2021 Patient encounter procedure Virgen Dc HOT MOLDER.NETWORKER Work Phone: [facility] Comment on above: Laceration of right thumb without damage to nail, foreign body presence unspecified, initial encounter (Primary Dx) Start: 07-11-2017 End: 07-12-2017 Ambulatory [facility] Facility:[facility] Start: 06-20-2017 End: 06-21-2017 Ambulatory [facility] Facility:[facility] Start: 03-16-2017 End: 03-17-2017 Ambulatory [facility] Facility:[facility] Start: 02-22-2017 End: 02-23-2017 Ambulatory DEFAULT PHYSICIAN Facility:[facility] Procedures Date Procedure Procedure Detail Performing Clinician Start: 02-09-2022 Screening mammograph y of bilateral breasts Start: 10-13-2021 MRI of abdomen with contrast Start: 07-11-2017 ANESTH LOWER LEG VEIN SURG AMOS GLASS Start: 07-11-2017 ENDOVENOUS LASER 1ST VEIN [facility] Start: 06-20-2017 ANESTH LOWER LEG VEIN SURG VERO HDZ Start: 06-20-2017 ENDOVENOUS LASER 1ST VEIN [facility] NAZZ[facility] Start: 06-20-2017 VASCULAR SURGERY PROCEDURE [facility] Plan of Treatment Date Care Activity Detail Author Start: 12-31-2022 Influenza vaccination INFLUENZA (Sea son Ended) [facility] Start: 05-02-2022 DEPRESSION ASSESSMENT DEPRESSION ASS ESSMENT [facility] Start: 12-31-2021 Influenza vaccination INFLUENZA (#1) [facility] Start: 04-15-2021 COVID-19 VACCINE (3 - Booster for Pfizer series) COVID-19 VACCINE (3 - Booster for Pfizer series) [facility] Start: 12-31-2020 Influenza vaccination INFLUENZA (#1) [facility] Start: 2018 Mammography MAMMOGRAM [facility] Start: 01-13-2008 HPV TESTING HPV TESTING [facility] Start: 1999 PAP TESTING PAP TESTING [facility] Start: 1997 Urine microalbumin profile DTAP,TDAP,TD (1 - Tdap) [facility] Start: 01-13-1996 HEPATITIS C SCREENING HEPATITIS C SC REENING [facility] Start: 01-13-1996 HIV SCREENING HIV SCREENING [facility] Start: 1990 Adult depression screening assessment DEPRESSION SCREENING [facility] Start: 01-13-1984 PNEUMOCOCCAL (1 - PCV) PNEUMOCOCCAL (1 - PCV) [facility] Start: 1978 HEPATITIS B (1 of 3 - 3-dose series) HEPATITIS B (1 of 3 - 3-dose series) [facility] Payers Date Payer Category Payer [employer] ([facility] and others) [id number] 2023 Self-pay [id number] 2020 Private Health Insurance JOHN GOMEZ OAP [id number] 2020-Present Open Access [id number] 2020 Private Health Insurance JOHN GOMEZ OAP [id number] 2020-Present [phone] [facility] [id number] [place] [address] Open Access [id number] 2020 Private Health Insurance [id number] 1980 Unknown [id number] Blue [employer] Blue [employer] [id number] Unknown Unknown [id number] Unknown [id number] Unknown [id number] Unknown [id number] Social History Date Type Detail Facility Start: 03-20-2013 End: 03-03-2021 Tobacco smoking status NHIS Current every day smoker [facility] Start: 03-20-2013 End: 03-03-2021 Tobacco use and exposure Never used [facility] Start: 03-03-2021 End: 10-26-2022 Alcohol intake Not Asked [facility] Start: 1980 Sex Assigned At Not on file [facility] Exposure to SARS-CoV -2 (event) Not sure [facility] Start: 12-20-2017 Tobacco smoking stat [facility] Unknown if ever smoked [facility] Work Phone: Start: 12-20-2017 None [facility] Work Phone: Start: 1980 Sex Assigned At Female A [facility] Tobacco smoking status No Smokin g Status Entered [facility] Clinical Notes 03-03-2021 to 10-26-2022 Zeny Urbina APRN.CNP - 10/26/2022 5:30 PM EDTPatient Abbe Leung APRN.CNP - 07/09/2022 6:58 PM ESTPatient Virgen Camara APRN.CNP - 03/03/2021 6:22 PM EDT Note Date & Type Note Facility 10-26-2022 Note HNO ID: [id number] Author: Zeny Urbina APRN.LIYA Service: ? Author Type: Nurse Practitioner Type: Progress Notes Filed: 10/26/2022 5:52 PM Note Text: This note was created using Sensulinriter. Subjective Luis Manuel Doan is a 42 year old female. Rash patient states that approximately 1 month ago she had a ringworm spot underneath her right arm. She used some dbrz-ijs-ryzissy antifungal cream for this with no results. She states it actually seems like it made it worse. She switch to a different antifungal cream with still no relief of the rash. And then yesterday on the right inner wrist small tiny blisters appeared. She denies any fevers. Review of Systems Objective BP 122/78 Pulse 80 Temp 36.8 ?C (98.3 ?F) (Tympanic) Resp 18 Wt 99.8 kg (220 lb) SpO2 100% Physical Exam Skin: ASSESSMENT/PLAN: 1. Dermatitis - ICD9: 692.9, ICD10: L30.9 - Oral Steriod tx -Medrol dose pack - Anti itch therapy of OTC 1% Hydrocortisone cream and Oral Benydryl recommended prn - discussed skin care of rash - follow up if symptoms persist or worsen. - METHYLPREDNISOLONE 4 MG TABLETS IN A DOSE PACK Zeny Urbina APRN.CNP Medical Decision Making: Problems: Low: Acute, uncomplicated illness or injury Risk: Low: Low risk from testing/treatment Moderate: Drug management Medical Decision Making Level: 3 - Low [facility] 10-26-2022 History of Present illness Narrative Images from the original note were not included. This note was created using Sensulinriter. Pako Doan is a 42 year old female. Rash patient states that approximately 1 month ago she had a ringworm spot underneath her right arm. She used some zthu-nbz-adfopxm antifungal cream for this with no results. She states it actually seems like it made it worse. She switch to a different antifungal cream with still no relief of the rash. And then yesterday on the right inner wrist small tiny blisters appeared. She denies any fevers. Review of Systems Objective BP 122/78 Pulse 80 Temp 36.8 C (98.3 F) (Tympanic) Resp 18 Wt 99.8 kg (220 lb) SpO2 100% Physical Exam Skin: ASSESSMENT/PLAN: 1. Dermatitis - ICD9: 692.9, ICD10: L30.9 - Oral Steriod tx -Medrol dose pack - Anti itch therapy of OTC 1% Hydrocortisone cream and Oral Benydryl recommended prn - discussed skin care of rash - follow up if symptoms persist or worsen. - METHYLPREDNISOLONE 4 MG TABLETS IN A DOSE PACK Zeny Urbina APRN.LIYA Medical Decision Making: Problems: Low: Acute, uncomplicated illness or injury Risk: Low: Low risk from testing/treatment Moderate: Drug management Medical Decision Making Level: 3 - Low documented in this encounter [facility] 07-09-2022 Note HNO ID: [id number] Author: Mickie Leung APRN.LIYA Service: ? Author Type: Nurse Practitioner Type: Progress Notes Filed: 07/09/2022 7:10 PM Note Text: Subjective Cough Associated symptoms include ear pain. Pertinent negatives include no chills, no headaches, no sore throat and no myalgias. Luis Manuel Doan is a 42 year old female who presents with laryngitis for the past 3 days. Also has had a cough and coughing up phlegm and having bilateral ear pain. She has been taking Mucinex. She was treated about a month ago for an ear infection with antibiotic and drops. Review of Systems Constitutional: Negative for chills and fever. HENT: Positive for congestion and ear pain. Negative for sore throat. Respiratory: Positive for cough and sputum production. Cardiovascular: Negative. Gastrointestinal: Negative for diarrhea, nausea and vomiting. Musculoskeletal: Negative for myalgias. Neurological: Negative for headaches. BP 108/68 Pulse 86 Temp 36.8 ?C (98.3 ?F) (Tympanic) Resp 16 Wt 97.1 kg (214 lb) SpO2 96% History reviewed. No pertinent past medical history. No past surgical history on file. ALLERGIES Latex, Seasonal Allergies, and Tape [Adhesive Tape-Silicones] MEDICATIONS medroxyPROGESTERone (DEPO-PROVERA) 150 mg/mL injection medroxyprogesterone 150 mg/mL intramuscular suspension levothyroxine (SYNTHROID) 25 mcg tablet Take 25 mcg by mouth daily before breakfast. amoxicillin-clavulanic acid (AUGMENTIN) 875-125 mg per tablet Take 1 tablet by mouth twice daily for 7 days. MAGNESIUM OXIDE/MAG AA CHELATE (MAGNESIUM, OXIDE/AA CHELATE, ORAL) Take by mouth. (Patient not taking: Reported on 03/03/2021 ) predniSONE (DELTASONE) 10 mg tablet Take 4 tabs daily for 3 days, then 2 tabs daily for 3 days, then 1 tab daily for 3 days with food. (Patient not taking: Reported on 03/03/2021 ) No family history on file. Social History Tobacco Use Smoking status: Every Day Smokeless tobacco: Never Objective Physical Exam Vitals and nursing note reviewed. Constitutional: Appearance: Normal appearance. HENT: Right Ear: Ear canal and external ear normal. Tympanic membrane is injected and erythematous. Left Ear: Tympanic membrane, ear canal and external ear normal. Mouth/Throat: Mouth: Mucous membranes are moist. Pharynx: Oropharynx is clear. Uvula midline. No oropharyngeal exudate or posterior oropharyngeal erythema. Cardiovascular: Rate and Rhythm: Normal rate and regular rhythm. Heart sounds: Normal heart sounds. Pulmonary: Effort: Pulmonary effort is normal. No respiratory distress. Breath sounds: Normal breath sounds. No wheezing or rales. Musculoskeletal: Cervical back: Neck supple. Lymphadenopathy: Cervical: No cervical adenopathy. Skin: General: Skin is warm and dry. Findings: No erythema or rash. Neurological: Mental Status: She is alert. ASSESSMENT/PLAN: 1. Other acute nonsuppurative otitis media of right ear, recurrence not specified - ICD9: 381.00, ICD10: H65.191 (primary diagnosis) - Will begin treatment with as per antibiotic as written, see orders - Supportive care with plenty of fluids, rest, and analgesia prn. - AMOXICILLIN 875 MG-POTASSIUM CLAVULANATE 125 MG TABLET 2. Viral URI - ICD9: 465.9, ICD10: J06.9 - Discussed viral etiology and rationale for treatment. - Symptomatic treatment with prn analgesia - Supportive care with fluids and rest 3. Laryngitis - ICD9: 464.00, ICD10: J04.0 - likely viral, continue Mucinex, also use hot tea with honey - Follow-up with your PCP in 3-5 days if symptoms have not improved or sooner if symptoms worsen - Discussed red flags and need for immediate medical evaluation if any occur. - Discussed supportive care treatment with fluids, rest and analgesia. - Discussed expected course of illness Mickie Leung APRN.CNP [facility] 07-09-2022 Instructions Mickie Leung APRN.CNP - 07/09/2022 7:05 PM EST ASSESSMENT/PLAN: 1. Other acute nonsuppurative otitis media of right ear, recurrence not specified - ICD9: 381.00, ICD10: H65.191 (primary diagnosis) - Will begin treatment with as per antibiotic as written, see orders - Supportive care with plenty of fluids, rest, and analgesia prn. - AMOXICILLIN 875 MG-POTASSIUM CLAVULANATE 125 MG TABLET 2. Viral URI - ICD9: 465.9, ICD10: J06.9 - Discussed viral etiology and rationale for treatment. - Symptomatic treatment with prn analgesia - Supportive care with fluids and rest 3. Laryngitis - ICD9: 464.00, ICD10: J04.0 - likely viral, continue Mucinex, also use hot tea with honey - Follow-up with your PCP in 3-5 days if symptoms have not improved or sooner if symptoms worsen - Discussed red flags and need for immediate medical evaluation if any occur. - Discussed supportive care treatment with fluids, rest and analgesia. - Discussed expected course of illness Mickie Leung APRN.NETWORKER OTITIS MEDIA GENERAL INFORMATION: Otitis media is an infection of the middle ear. The middle ear sits behind the eardrum. This infection may be caused by a virus or bacteria and often follows a cold. Children often have repeat ear infections. Otitis media is not contagious. INSTRUCTIONS: 1. An antibiotic has been prescribed. It should be taken exactly as prescribed. Do not stop the medicine even if the symptoms go away. 2. Ujtz-gux-oecgwuw pain medication may be taken or other pain medication as prescribed by the doctor. 3. Nothing should be placed in the ear unless instructed by your doctor. 4. The patient may return to school/daycare or work when the temperature is normal (98.6 F or 37 C). 5. The patient should not swim while the ear is infected. CONTACT YOUR DOCTOR IF YOU OR YOUR CHILD: 1. Does not feel better within 36 hours. 2. Develops a temperature over 102E F (39E C). 3. Starts vomiting or has diarrhea. 4. Develops drainage from the affected ear. 5. Has any new problem that may be related to the medicine prescribed. RETURN TO THE ED IF: 1. You or your child has a severe headache or pain around the ear. 2. You or your child notice swelling around the ear. 3. You or your child has a seizure (convulsion), twitching of the facial muscles, or passes out. 4. You or your child is dizzy, has a stiff neck, or cannot walk or talk normally. 5. Your child becomes more irritable or listless (not interested in his or her surroundings, does not get soothed by you holding him or her). documented in this encounter [facility] 07-09-2022 History of Present illness Narrative Subjective Cough Associated symptoms include ear pain. Pertinent negatives include no chills, no headaches, no sore throat and no myalgias. Luis Manuel Doan is a 42 year old female who presents with laryngitis for the past 3 days. Also has had a cough and coughing up phlegm and having bilateral ear pain. She has been taking Mucinex. She was treated about a month ago for an ear infection with antibiotic and drops. Review of Systems Constitutional: Negative for chills and fever. HENT: Positive for congestion and ear pain. Negative for sore throat. Respiratory: Positive for cough and sputum production. Cardiovascular: Negative. Gastrointestinal: Negative for diarrhea, nausea and vomiting. Musculoskeletal: Negative for myalgias. Neurological: Negative for headaches. BP 108/68 Pulse 86 Temp 36.8 C (98.3 F) (Tympanic) Resp 16 Wt 97.1 kg (214 lb) SpO2 96% History reviewed. No pertinent past medical history. No past surgical history on file. ALLERGIES Latex, Seasonal Allergies, and Tape [Adhesive Tape-Silicones] MEDICATIONS medroxyPROGESTERone (DEPO-PROVERA) 150 mg/mL injection medroxyprogesterone 150 mg/mL intramuscular suspension levothyroxine (SYNTHROID) 25 mcg tablet Take 25 mcg by mouth daily before breakfast. amoxicillin-clavulanic acid (AUGMENTIN) 875-125 mg per tablet Take 1 tablet by mouth twice daily for 7 days. MAGNESIUM OXIDE/MAG AA CHELATE (MAGNESIUM, OXIDE/AA CHELATE, ORAL) Take by mouth. (Patient not taking: Reported on 03/03/2021 ) predniSONE (DELTASONE) 10 mg tablet Take 4 tabs daily for 3 days, then 2 tabs daily for 3 days, then 1 tab daily for 3 days with food. (Patient not taking: Reported on 03/03/2021 ) No family history on file. Social History Tobacco Use Smoking status: Every Day Smokeless tobacco: Never Objective Physical Exam Vitals and nursing note reviewed. Constitutional: Appearance: Normal appearance. HENT: Right Ear: Ear canal and external ear normal. Tympanic membrane is injected and erythematous. Left Ear: Tympanic membrane, ear canal and external ear normal. Mouth/Throat: Mouth: Mucous membranes are moist. Pharynx: Oropharynx is clear. Uvula midline. No oropharyngeal exudate or posterior oropharyngeal erythema. Cardiovascular: Rate and Rhythm: Normal rate and regular rhythm. Heart sounds: Normal heart sounds. Pulmonary: Effort: Pulmonary effort is normal. No respiratory distress. Breath sounds: Normal breath sounds. No wheezing or rales. Musculoskeletal: Cervical back: Neck supple. Lymphadenopathy: Cervical: No cervical adenopathy. Skin: General: Skin is warm and dry. Findings: No erythema or rash. Neurological: Mental Status: She is alert. ASSESSMENT/PLAN: 1. Other acute nonsuppurative otitis media of right ear, recurrence not specified - ICD9: 381.00, ICD10: H65.191 (primary diagnosis) - Will begin treatment with as per antibiotic as written, see orders - Supportive care with plenty of fluids, rest, and analgesia prn. - AMOXICILLIN 875 MG-POTASSIUM CLAVULANATE 125 MG TABLET 2. Viral URI - ICD9: 465.9, ICD10: J06.9 - Discussed viral etiology and rationale for treatment. - Symptomatic treatment with prn analgesia - Supportive care with fluids and rest 3. Laryngitis - ICD9: 464.00, ICD10: J04.0 - likely viral, continue Mucinex, also use hot tea with honey - Follow-up with your PCP in 3-5 days if symptoms have not improved or sooner if symptoms worsen - Discussed red flags and need for immediate medical evaluation if any occur. - Discussed supportive care treatment with fluids, rest and analgesia. - Discussed expected course of illness Mickie Leung APRN.NETWORKER documented in this encounter [facility] 03-03-2021 Instructions Virgen Dc APRN.LIYA - 03/03/2021 6:36 PM EDT WOUND CARE GENERAL INFORMATION: A wound is a break in the skin. There are several types of wounds. Abrasions occur when the outer layer of the skin is rubbed or scraped off. Lacerations are cuts in the skin. Puncture wounds are holes that are made by round, sharp objects such as needles or nails. It may have been necessary to close the wound with stitches (sutures) to speed healing and to prevent infection. Using stitches also will decrease the amount of scarring. CONTACT YOUR DOCTOR OR RETURN TO THE OFFICE IF: 1. You have a temperature over 100.4 F (38 C). 2. You have signs of infection such as increasing pain or soreness, swelling, redness, pus, a foul smell, or red streaks coming from the injured site. 3. You have numbness or swelling below the wound, or you can't move the joint below. documented in this encounter [facility] 03-03-2021 History of Present illness Narrative Images from the original note were not included. This note was created using [employer]. Subjective Luis Manuel Doan is a 41 year old female. 41 year old female with no significant PMH presents with complaints of right thumb laceration. Acute onset 20 min [employer]. Endorses that she was washing a glass milk jug. Endorses that she was washing and container moved and ultimately broke. Her right thumb was cut. Initially bled, but now under control. Denies reduced or limited ROM. Denies numbness or tingling. Right hand dominant. Up to date on Tdap The history is provided by the patient. No second language tutor was used. Laceration The incident occurred less than 1 hour ago. Pain location: right thumb. The laceration is 1 cm in size. The laceration mechanism was a broken glass. The pain is at a severity of 3/10. The pain is mild. The pain has been constant since onset. It is unknown if a foreign body is present. Her tetanus status is UTD. No past medical history on file. No past surgical history on file. ALLERGIES Latex, Seasonal Allergies, and Tape [Adhesive Tape-Silicones] MEDICATIONS medroxyPROGESTERone (DEPO-PROVERA) 150 mg/mL injection medroxyprogesterone 150 mg/mL intramuscular suspension levothyroxine (SYNTHROID) 25 mcg tablet Take 25 mcg by mouth daily before breakfast. cephALEXin (KEFLEX) 500 mg capsule Take 1 capsule by mouth four times daily for 5 days. MAGNESIUM OXIDE/MAG AA CHELATE (MAGNESIUM, OXIDE/AA CHELATE, ORAL) Take by mouth. predniSONE (DELTASONE) 10 mg tablet Take 4 tabs daily for 3 days, then 2 tabs daily for 3 days, then 1 tab daily for 3 days with food. No family history on file. Social History Tobacco Use Smoking status: Current Every Day Smoker Smokeless tobacco: Never Used Substance Use Topics Alcohol use: Not on file Drug use: Not on file Review of Systems Constitutional: Negative for activity change, appetite change, chills, diaphoresis, fatigue, fever and unexpected weight change. HENT: Negative for congestion, dental problem, drooling, ear discharge, ear pain, facial swelling, hearing loss, mouth sores, nosebleeds, postnasal drip, rhinorrhea, sinus pressure, sinus pain, sneezing, sore throat, tinnitus, trouble swallowing and voice change. Eyes: Negative for photophobia, pain, discharge, redness, itching and visual disturbance. Respiratory: Negative for apnea, cough, choking, chest tightness, shortness of breath, wheezing and stridor. Cardiovascular: Negative for chest pain, palpitations and leg swelling. Gastrointestinal: Negative for abdominal pain, diarrhea, nausea and vomiting. Musculoskeletal: Negative for arthralgias, back pain and gait problem. Skin: Positive for wound. Negative for color change, pallor and rash. Allergic/Immunologic: Negative for environmental allergies, food allergies and immunocompromised state. Neurological: Negative for dizziness and facial asymmetry. Hematological: Negative for adenopathy. Does not bruise/bleed easily. Psychiatric/Behavioral: Negative for agitation and behavioral problems. Objective BP 122/86 Pulse 109 Temp 36.6 C (97.9 F) Resp 18 Wt 88.2 kg (194 lb 6.4 oz) SpO2 98% Physical Exam Vitals and nursing note reviewed. Constitutional: General: She is not in acute distress. Appearance: Normal appearance. She is normal weight. She is not ill-appearing, toxic-appearing or diaphoretic. HENT: Head: Normocephalic and atraumatic. Right Ear: Ear canal and external ear normal. Left Ear: Ear canal and external ear normal. Nose: Nose normal. No congestion or rhinorrhea. Mouth/Throat: Mouth: Mucous membranes are moist. Pharynx: No oropharyngeal exudate or posterior oropharyngeal erythema. Eyes: General: Right eye: No discharge. Left eye: No discharge. Extraocular Movements: Extraocular movements intact. Conjunctiva/sclera: Conjunctivae normal. Pupils: Pupils are equal, round, and reactive to light. Cardiovascular: Rate and Rhythm: Normal rate and regular rhythm. Pulses: Normal pulses. Heart sounds: Normal heart sounds. No murmur heard. No friction rub. Pulmonary: Effort: Pulmonary effort is normal. No respiratory distress. Breath sounds: Normal breath sounds. No stridor. No wheezing, rhonchi or rales. Chest: Chest wall: No tenderness. Abdominal: General: Abdomen is flat. There is no distension. Palpations: Abdomen is soft. There is no mass. Tenderness: There is no abdominal tenderness. There is no right CVA tenderness, left CVA tenderness, guarding or rebound. Hernia: No hernia is present. Musculoskeletal: General: No swelling, tenderness, deformity or signs of injury. Normal range of motion. Hands: Cervical back: Normal range of motion and neck supple. No rigidity. Right lower leg: No edema. Left lower leg: No edema. Lymphadenopathy: Cervical: No cervical adenopathy. Skin: General: Skin is warm and dry. Coloration: Skin is not jaundiced or pale. Findings: No bruising, erythema, lesion or rash. Neurological: General: No focal deficit present. Mental Status: She is alert and oriented to person, place, and time. Cranial Nerves: No cranial nerve deficit. Sensory: No sensory deficit. Motor: No weakness. Coordination: Coordination normal. Gait: Gait normal. Psychiatric: Mood and Affect: Mood normal. Behavior: Behavior normal. Thought Content: Thought content normal. Judgment: Judgment normal. Assessment and Plan ASSESSMENT/PLAN: 1. Laceration of right thumb without damage to nail, foreign body presence unspecified, initial encounter - ICD9: 883.0, ICD10: S61.011A Superficial No FB appreciated Wound soaked for 15 minutes Topical ATB DSD Wound care NSAIDs RX Keflex Follow up with PCP Virgen Dc APRN.LIYA documented in this encounter [facility] Evaluation + Plan note No data available for this section [facility] Evaluation note Diagnosis Laceration of right thumb without damage to nail, foreign body presence unspecified, initial encounter- Primary [facility] noteNo assessment information availableWMer[facility] Work Phone: Evaluation note* Diagnosis Other acute nonsuppurative otitis media of right ear, recurrence not specified- Primary Viral URI Acute upper respiratory infections of unspecified site Laryngitis Acute laryngitis, without mention of obstruction [facility] Diagnosis Dermatitis- Primary Contact dermatitis and other eczema, due to unspecified cause [facility] Discharge instructions No data available for this section [facility] Progress note No data available for this section [facility] Summary Purpose Family History No Family History Records FoundNo Family History Records Found No data available for this section No Family History Records FoundNo Family History Records Found Advance Directives No Advanced Directives Records Found Advance Directive Response Recorded Date/ Time Living Will No December 20 201 8 3:26am Power of Care Worker No December 20, 2 018 3:26am Chief Complaint and Reason for Visit Chief Complaint MASS SEEN ON CT Chief Complaint SCREENING Additional Source Comments INFORMATION SOURCE (unrecogn ized section and content) DATE CREATED AUTHOR 10/20/2017 [facility] DATE CREATED AUTHOR AUTHOR'S ORGANIZ ATION 10/27/2022 [facility] DATE CREATED AUTHOR AUTHOR'S ORGANIZ ATION 04/15/2023 [facility] ([place]) DATE CREATED AUTHOR AUTHOR'S ORGANIZ ATION 05/16/2024 [facility] Source Comments (unrecognize d section and content) In the event this informatio n is protected by the Federal Confidentiality of Alcohol and Drug Abuse Patient Records regulations: The Federal rules restrict any use of the information to criminally investigate or prosecute any alcohol or drug abuse patient.[facility] the event this information is protected by the Federal Confidentiality of Alcohol and Drug Abuse Patient Records regulations: The Federal rules restrict any use of the information to criminally investigate or prosecute any alcohol or drug abuse patient.[facility] the event this information is protected by the Federal Confidentiality of Alcohol and Drug Abuse Patient Records regulations: The Federal rules restrict any use of the information to criminally investigate or prosecute any alcohol or drug abuse patient.[facility] Reason for Visit (unrecogniz ed section and content) Reason Comments Laceration R thumb cut x 10 min s Reason Comments Cough Cough, drainage and loss of voice x 3 days Reason Comments Rash Rash on right arm x 1 month-new spots noticed new spots yesterday Goals (unrecognized section and content) Goals may be documented in a n alternate sectionGoals may be documented in an alternate section No data available for this section FOR RECORDS PERTAINING TO PATIENTS WHO ARE OR HAVE BEEN ENROLLED IN A CHEMICAL DEPENDENCY/SUBSTANCEABUSE PROGRAM, SOME INFORMATION MAY BE OMITTED. This clinical summary was aggregated from multiple sources. Caution should be exercised in using it in the provision of clinical care. This summary normalizes information from multiple sources, and as a consequence, information in this document may materially change the coding, format and clinical context of patient data. In addition, data may be omitted in some cases. CLINICAL DECISIONS SHOULD BE BASED ON THE PRIMARY CLINICAL RECORDS. [facility]. provides no warranty or guarantee of the accuracy or completeness of information in this document.
== END | disposition home or self-care (01) ==
PROVIDERS: Referring Provider Registered Nurse General Practice; Visit Provider Registered Nurse General Practice
DX: Z12.31 Encounter for screening mammogram for malignant neoplasm of breast (principal)
CPT/HCPCS: 77063; 77067